=== PATIENT | female | born 1995 | race Two or more races ===

== ENCOUNTER 2019-06-27 00:45 | Observation (INO) | payer MEDICAID | END 2019-06-27 05:15 | disposition home or self-care (01) | LOC: 8 EST LDRP 00:45 | PROVIDERS: ADMIT Specialist; ATTEND Specialist | DX: O26.893 Other specified pregnancy related conditions, third trimester (principal); M54.5 Low back pain; Z3A.38 38 weeks gestation of pregnancy | CPT/HCPCS: 99281; G0378 ==

== ENCOUNTER 2019-07-04 11:39 | Inpatient (IN) | payer MEDICAID ==
[~2019-07-04] VITALS: Ht 170.2 cm; Wt 83.5 kg
[2019-07-04] MEDS ORDERED: LACTATED RINGERS 1,000 ML IV SCH (12:04)
[2019-07-04] MEDS ORDERED: MINERAL OIL 30ML BOTTLE PO ONE (12:15)
[2019-07-04 12:27] LABS: EOSINOPHILS % 0.6 % (0.0-5.0); HEMATOCRIT. 37.9 % (36.0-48.0); HEMOGLOBIN. 12.9 g/dL (12.0-16.0); LYMPHOCYTES % 14.4 % (20.0-50.0); MEAN CORPUSCULAR HEMOGLOBIN 30.5 pg (28.0-32.0); MEAN CORPUSCULAR VOLUME 89.7 fL (81.0-99.0); MEAN PLATELET VOLUME 9.8 fl (7.4-10.4); MONOCYTES % 10.1 % (2.0-8.0); NEUTROPHILS % 73.9 % (40.0-76.0); PLATELET 142 x1000/uL (130-400); RED BLOOD CELL COUNT 4.23 mill/uL (4.2-5.4); RED CELL DISTRIBUTION WIDTH 15.6 % (11.6-14.6)
[2019-07-04 12:35] LABS: CLARITY URINE CLEAR (CLEAR); COLOR URINE YELLOW (YELLOW); KETONES URINE NEGATIVE (NEGATIVE); LEUKOCYTE ESTERASE URINE 1+ (NEGATIVE); NITRITE URINE NEGATIVE (NEGATIVE); OCCULT BLOOD URINE NEGATIVE (NEGATIVE); PROTEIN URINE NEGATIVE (NEGATIVE); SPECIFIC GRAVITY URINE 1.007 (1.005-1.030); UROBILINOGEN URINE 0.2 E.U./dL (0.2-1.0)
[2019-07-04 12:45] LABS: INR 0.9; PARTIAL THROMBOPLASTIN TIME 25.9 sec (23.4-31.0); PROTHROMBIN TIME 9.2 sec (9.6-11.0)
[2019-07-04] MEDS ORDERED: DEXT 5%/LR + PITOCIN 20UNITS/L 1,000 ML IV ONE (12:52)
[2019-07-04 13:06] LABS: *AMPHETAMINES SCREEN URINE NEGATIVE (NEGATIVE); METHADONE URINE SCREEN NEGATIVE (NEGATIVE); PHENCYCLIDINE URINE SCREEN NEGATIVE (NEGATIVE)
[2019-07-04 13:07] LABS: *BARBITURATES SCREEN URINE NEGATIVE (NEGATIVE); *BENZODIAZEPINES SCREEN URINE NEGATIVE (NEGATIVE); *COCAINE SCREEN URINE NEGATIVE (NEGATIVE); OPIATES URINE SCREEN NEGATIVE (NEGATIVE)
[2019-07-04 13:08] LABS: CANNABINOID URINE SCREEN NEGATIVE (NEGATIVE); HEPATITIS B SURFACE ANTIGEN NEGATIVE
[2019-07-04] MEDS ORDERED: DEXT 5%/LR + PITOCIN 20UNITS/L 1,000 ML IV SCH (14:16)
[2019-07-04] MEDS ORDERED: RHO(D) IMMUNE GLOBULIN 300 MCG/SYR IM PRN (14:30)
[2019-07-04] MEDS ORDERED: METHYLERGONOVINE MALEATE 0.2 MG/ML IM PRN (14:30)
[2019-07-04] MEDS ORDERED: IBUPROFEN 400MG TABLET PO PRN (14:30)
[2019-07-04] MEDS ORDERED: DIPHENHYDRAMINE 25MG CAPSULE PO PRN (14:30)
[2019-07-04] MEDS ORDERED: LANOLIN OINT 7GM TUBE TOP PRN (14:30)
[2019-07-04 16:00] VITALS: BP 128/77
[2019-07-04 16:45] VITALS: BP 119/82
[2019-07-04 20:30] VITALS: BP 110/72
[2019-07-05 04:15] VITALS: BP 117/77
[2019-07-05 05:49] LABS: BASOPHILS % 0.3 % (0.0-2.0); EOSINOPHILS % 0.5 % (0.0-5.0); HEMOGLOBIN. 12.2 g/dL (12.0-16.0); LYMPHOCYTES % 15.2 % (20.0-50.0); MEAN CORPUSCULAR VOLUME 91.1 fL (81.0-99.0); MEAN PLATELET VOLUME 9.9 fl (7.4-10.4); MONOCYTES % 9.2 % (2.0-8.0); NEUTROPHILS % 74.8 % (40.0-76.0); PLATELET 133 x1000/uL (130-400); RED BLOOD CELL COUNT 3.95 mill/uL (4.2-5.4); RED CELL DISTRIBUTION WIDTH 15.4 % (11.6-14.6)
[2019-07-05 07:45] VITALS: BP 118/72
[2019-07-05] MEDS: PRENATAL VIT/FE FUMARATE/FA TABLET PO SCH (11:42)
[2019-07-05] MEDS: IBUPROFEN 800MG TABLET PO PRN ×2 (11:42→17:41)
[2019-07-05 13:56] VITALS: BP 110/69
[2019-07-05 19:30] VITALS: BP 136/86
[2019-07-06 04:00] VITALS: BP 117/80
[2019-07-06] MEDS: IBUPROFEN 800MG TABLET PO PRN ×2 (04:08→11:40)
[2019-07-06] MEDS ORDERED: IBUP-2030 PO (05:45)
[2019-07-06 07:30] VITALS: BP 114/74
[2019-07-06] MEDS: PRENATAL VIT/FE FUMARATE/FA TABLET PO SCH (11:39)
[2019-07-06 14:00] VITALS: BP 116/76
== END 2019-07-06 18:43 | disposition home or self-care (01) | DRG 560 ==
LOC: 8 EST LDRP 11:39 → OBSVTOIN 13:14 → 8EST 15:00
PROVIDERS: ADMIT Obstetrics & Gynecology; ATTEND Obstetrics & Gynecology
PROC: 10E0XZZ Delivery of Products of Conception, External Approach (ICD-10-PCS; principal; 2019-07-05)
DX: O80 Encounter for full-term uncomplicated delivery (principal); Z37.0 Single live birth; Z3A.38 38 weeks gestation of pregnancy
CPT/HCPCS: 36415; 80305; 81003; 82962; 86592; 86703; 86762; 86850; 86900; 87340; 99281; G0378; J2590

== ENCOUNTER 2020-09-05 04:22 | Inpatient (IN) | payer MEDICAID ==
[~2020-09-05] VITALS: Ht 170.2 cm; Wt 81.6 kg
[~2020-09-05 04:22] MED LIST: IBUP-2030 PO
[2020-09-05] MEDS ORDERED: METHYLERGONOVINE MALEATE 0.2 MG/ML IM PRN (05:00)
[2020-09-05] MEDS ORDERED: CARBOPROST TROMETHAMINE 250 MCG/ML AMPUL IM PRN (05:00)
[2020-09-05] MEDS ORDERED: NALOXONE HCL 0.4 MG/ML 1ML VIAL IM PRN (05:00)
[2020-09-05] MEDS ORDERED: LIDOCAINE HCL 1% 20ML VIAL (Pyxis) INJ INFIL SCH (05:00)
[2020-09-05] MEDS ORDERED: LACTATED RINGERS 1,000 ML IV SCH (05:00)
[2020-09-05] MEDS ORDERED: OXYTOCIN 10 UNITS/ML 1ML ONE (05:00)
[2020-09-05] MEDS ORDERED: MISOPROSTOL 100MCG TABLET VG SCH (05:00)
[2020-09-05] MEDS ORDERED: DEXT 5%/LR + PITOCIN 20UNITS/L 1,000 ML IV SCH ×2 (05:00→07:15)
[2020-09-05 06:24] LABS: CLARITY URINE CLEAR (CLEAR); COLOR URINE YELLOW (YELLOW); KETONES URINE NEGATIVE (NEGATIVE); LEUKOCYTE ESTERASE URINE 3+ (NEGATIVE); NITRITE URINE NEGATIVE (NEGATIVE); OCCULT BLOOD URINE NEGATIVE (NEGATIVE); PROTEIN URINE NEGATIVE (NEGATIVE); SPECIFIC GRAVITY URINE 1.009 (1.005-1.030)
[2020-09-05 06:28] LABS: BASOPHILS % 0.6 % (0.0-2.0); EOSINOPHILS % 0.6 % (0.0-5.0); HEMATOCRIT. 36.8 % (36.0-48.0); HEMOGLOBIN. 12.6 g/dL (12.0-16.0); LYMPHOCYTES % 26.4 % (20.0-50.0); MEAN CORPUSCULAR HEMOGLOBIN 31.6 pg (28.0-32.0); MEAN CORPUSCULAR VOLUME 92.3 fL (81.0-99.0); MEAN PLATELET VOLUME 10.1 fl (7.4-10.4); MONOCYTES % 13.9 % (2.0-8.0); NEUTROPHILS % 58.5 % (40.0-76.0); PLATELET 139 x1000/uL (130-400); RED BLOOD CELL COUNT 3.99 mill/uL (4.2-5.4); RED CELL DISTRIBUTION WIDTH 14.1 % (11.6-14.6)
[2020-09-05 06:36] LABS: INR 0.9; PARTIAL THROMBOPLASTIN TIME 24.8 sec (23.4-31.0); PROTHROMBIN TIME 9.5 sec (9.6-11.0)
[2020-09-05 06:46] LABS: *BARBITURATES SCREEN URINE NEGATIVE (NEGATIVE); *BENZODIAZEPINES SCREEN URINE NEGATIVE (NEGATIVE); *COCAINE SCREEN URINE NEGATIVE (NEGATIVE); METHADONE URINE SCREEN NEGATIVE (NEGATIVE); OPIATES URINE SCREEN NEGATIVE (NEGATIVE)
[2020-09-05 06:47] LABS: *AMPHETAMINES SCREEN URINE NEGATIVE (NEGATIVE); CANNABINOID URINE SCREEN NEGATIVE (NEGATIVE); PHENCYCLIDINE URINE SCREEN NEGATIVE (NEGATIVE)
[2020-09-05 07:04] LABS: HEPATITIS B SURFACE ANTIGEN NEGATIVE
[2020-09-05] MEDS ORDERED: DIPHENHYDRAMINE 25MG CAPSULE PO PRN (07:15)
[2020-09-05] MEDS ORDERED: ACETAMINOPHEN WITH CODEINE 300/30MG TABLET PO PRN (07:15)
[2020-09-05] MEDS ORDERED: BENZOCAINE/LANOLIN/ALOE VERA SPRAY TOP PRN (07:15)
[2020-09-05] MEDS ORDERED: BISACODYL 10MG SUPP PR PRN (07:15)
[2020-09-05] MEDS ORDERED: IBUPROFEN 800MG TABLET PO PRN (07:15)
[2020-09-05] MEDS ORDERED: HEMORRHOIDAL SUPP PR PRN (07:15)
[2020-09-05] MEDS ORDERED: IBUPROFEN 400MG TABLET PO PRN (07:15)
[2020-09-05] MEDS ORDERED: PRENATAL VIT/FE FUMARATE/FA TABLET PO SCH (09:00)
[2020-09-05] MEDS ORDERED: MAGNESIUM/ALUMINUM HYDROXIDE/SIMETHICONE 30ML UDC PO SCH (09:00)
[2020-09-05] MEDS ORDERED: SIMETHICONE 80MG TABLET CHEW PO SCH (09:00)
[2020-09-05 10:00] VITALS: BP 117/70
[2020-09-05 11:00] VITALS: BP 119/65
[2020-09-05 15:55] VITALS: BP 125/71
[2020-09-05 19:30] VITALS: BP 111/73
[2020-09-05] MEDS ORDERED: DOCUSATE SODIUM 100MG CAPSULE PO SCH (21:00)
[2020-09-06 04:00] VITALS: BP 114/70
[2020-09-06 06:24] LABS: BASOPHILS % 0.7 % (0.0-2.0); EOSINOPHILS % 0.5 % (0.0-5.0); HEMATOCRIT. 40.1 % (36.0-48.0); HEMOGLOBIN. 13.6 g/dL (12.0-16.0); MEAN CORPUSCULAR HEMOGLOBIN 31.5 pg (28.0-32.0); MEAN CORPUSCULAR VOLUME 93.1 fL (81.0-99.0); MEAN PLATELET VOLUME 9.6 fl (7.4-10.4); MONOCYTES % 11.5 % (2.0-8.0); NEUTROPHILS % 66.3 % (40.0-76.0); PLATELET 134 x1000/uL (130-400); RED BLOOD CELL COUNT 4.31 mill/uL (4.2-5.4); RED CELL DISTRIBUTION WIDTH 13.9 % (11.6-14.6)
[2020-09-06] MEDS ORDERED: FERR325T23 PO (07:14)
[2020-09-06] MEDS ORDERED: FERROUS SULFATE 325MG TABLET PO SCH (07:30)
[2020-09-06 08:00] VITALS: BP 96/56
== END 2020-09-06 12:30 | disposition home or self-care (01) | DRG 560 ==
LOC: 8 EST LDRP 04:22 → OBSVTOIN 04:22 → 8 EST A/PP 08:30 → 8EST 16:01
PROVIDERS: ADMIT Obstetrics & Gynecology; ATTEND Obstetrics & Gynecology
PROC: 10E0XZZ Delivery of Products of Conception, External Approach (ICD-10-PCS; principal; 2020-09-05)
DX: O80 Encounter for full-term uncomplicated delivery (principal); Z37.0 Single live birth; Z3A.39 39 weeks gestation of pregnancy
CPT/HCPCS: 36415; 80305; 81003; 85025; 86592; 86703; 86762; 86850; 86900; 87340; 99281; J2590